=== PATIENT | female | born 1970 | race Caucasian/White ===

== ENCOUNTER 2017-03-24 15:59 | Emergency (ER) | payer OTHER ==
--- NOTE | 2017-03-24 16:05 | EDM.PDOC ---
ED HPI GENERAL MEDICAL PROBLEM - General Stated Complaint: CHEST PAIN Time Seen by Provider: 03/24/17 16:02 Source of Information: Reports: Patient History Limitations: Reports: No Limitations - History of Present Illness INITIAL COMMENTS - FREE TEXT/NARRATIVE: History of present illness: []Patient's been having intermittent palpitations for the past 3 weeks that are worse at night. She denies any chest pain, fevers, chills, cough or shortness of breath. Today she said that it was worse and she feels that it is just rapid pulse she does not recall it being irregular. She denies taking any new medications. She's never had her thyroid checked. Review of systems: As per history of present illness and below otherwise all systems reviewed and negative. Past medical history: As per history of present illness and as reviewed below otherwise noncontributory. Surgical history: As per history of present illness and as reviewed below otherwise noncontributory. Social history: No reported history of drug or alcohol abuse. Family history: As per history of present illness and as reviewed below otherwise noncontributory. Physical exam: General: Well developed, well nourished in NAD HEENT: Atraumatic, normocephalic, pupils reactive, negative for conjunctival pallor or scleral icterus, mucous membranes moist, throat clear, neck supple, nontender, trachea midline. Lungs: Clear to auscultation, breath sounds equal bilaterally, chest nontender. Heart: S1S2, regular, negative for clicks, rubs, or JVD. Abdomen: Soft, nondistended, nontender. Negative for masses or hepatosplenomegaly. Negative for costovertebral tenderness. Pelvis: Stable nontender. Genitourinary: Deferred. Rectal: Deferred. Extremities: Atraumatic, negative for cords or calf pain. Neurovascular unremarkable. Neuro: Awake, alert, oriented. Cranial nerves II through XII unremarkable. Cerebellum unremarkable. Motor and sensory unremarkable throughout. Exam nonfocal. Diagnostics: []EKG shows normal sinus rhythm without ectopy on the labs are normal including thyroid, troponin Therapeutics: []Patient was hydrated with fluid she remained symptom-free while in the ED. Impression: []Palpitations Plan: []Follow-up with PMD for Holter monitoring return if symptoms worsen or change. Definitive disposition and diagnosis as appropriate pending reevaluation and review of above. CHEST Pain Score (Numeric/FACES): 3 - Related Data Allergies Allergy/AdvReac Type Severity Reaction Status Date / Time Sulfa (Sulfonamide Allergy Rash Verified 03/24/17 16:07 Antibiotics) Home Meds: Home Meds Amitriptyline [Elavil] 25 mg PO BEDTIME 03/24/17 [History] Gabapentin [Gralise] 600 mg PO TID 03/24/17 [History] Insulin Glarg,Human.Rec.Analog [LantUS] 30 unit SUBCUT DAILY 03/24/17 [History] Losartan [Cozaar] 50 mg PO DAILY 03/24/17 [History] Omeprazole Magnesium [Prilosec Otc] 20 mg PO BID 03/24/17 [History] Pioglitazone HCl [Actos] 30 mg PO DAILY 03/24/17 [History] Tolterodine [Detrol LA 24 Hr] 2 mg PO DAILY 03/24/17 [History] Varenicline Tartrate [Chantix] 1 mg PO BID 03/24/17 [History] atorvaSTATin [Lipitor] 20 mg PO BEDTIME 03/24/17 [History] traMADol [Ultram] 50 mg PO Q4H PRN 03/24/17 [History] ED ROS GENERAL - Review of Systems Review Of Systems: See Below (See history of present illness) ED EXAM, GENERAL - Physical Exam Exam: See Below (See history of present illness) Course - Vital Signs Last Recorded V/S: Last Vital Signs Temp 36.8 C 03/24/17 16:08 Pulse 101 H 03/24/17 16:08 Resp 20 03/24/17 16:08 BP 146/94 H 03/24/17 16:08 Pulse Ox 99 03/24/17 16:08 - Orders/Labs/Meds Orders: Active Orders 24 hr Category Date Time Status Cardiac Monitoring [RC] . DIRECTED Care 03/24/17 16:16 Active EKG Documentation Completion [RC] STAT Care 03/24/17 16:16 Active Chest 1V Frontal [CR] Stat Exams 03/24/17 16:17 Taken Saline Lock Insert [OM.PC] Stat Oth 03/24/17 16:16 Ordered Labs: Laboratory Tests 03/24/17 03/24/17 03/24/17 Range/Units 16:15 16:15 16:15 WBC 10.40 (4.0-11.0) K/uL RBC 5.24 (4.30-5.90) M/uL Hgb 16.5 H (12.0-16.0) g/dL Hct 48.0 H (36.0-46.0) % MCV 91.6 (80.0-98.0) fL MCH 31.5 (27.0-32.0) pg MCHC 34.4 (31.0-37.0) g/dL RDW Std Deviation 42.4 (28.0-62.0) fl RDW Coeff of Darlin 13 (11.0-15.0) % Plt Count 307 (150-400) K/uL MPV 10.00 (7.40-12.00) fL Neut % (Auto) 53.1 (48.0-80.0) % Lymph % (Auto) 38.0 (16.0-40.0) % [place] % (Auto) 5.9 (0.0-15.0) % Eos % (Auto) 2.7 (0.0-7.0) % Baso % (Auto) 0.3 (0.0-1.5) % Neut # (Auto) 5.5 (1.4-5.7) K/uL Lymph # (Auto) 4.0 H (0.6-2.4) K/uL [place] # (Auto) 0.6 (0.0-0.8) K/uL Eos # (Auto) 0.3 (0.0-0.7) K/uL Baso # (Auto) 0.0 (0.0-0.1) K/uL Nucleated RBC % 0.0 /100WBC Nucleated RBCs # 0 K/uL Sodium 139 (136-146) mmol/L Potassium 3.9 (3.5-5.1) mmol/L Chloride 108 (98-110) mmol/L Carbon Dioxide 20 L (21-31) mmol/L BUN 13 (6.0-23.0) mg/dL Creatinine 0.9 (0.6-1.5) mg/dL Est Cr Clr Drug Dosing TNP Estimated GFR (MDRD) > 60.0 ml/min Glucose 60 (60-110) mg/dL Calcium 9.4 (8.8-10.8) mg/dL Total Bilirubin 0.4 (0.1-1.5) mg/dL AST 22 (5-40) IU/L ALT 21 (8-54) IU/L Alkaline Phosphatase 96 (40-150) Troponin I < 0.10 (0.0-0.29) NG/ML Total Protein 8.1 H (6.0-8.0) g/dL Albumin 4.7 (3.5-5.0) g/dL Globulin 3.4 (2.0-3.5) g/dL Albumin/Globulin Ratio 1.4 (1.3-2.8) TSH 3rd Generation 3.17 (0.47-5.0) uIU/mL Meds: Medications Discontinued Medications Generic Name Dose Route Start Last Admin Trade Name Wesley PRN Reason Stop Dose Admin Sodium Chloride 1,000 mls @ 999 mls/hr 03/24/17 16:16 03/24/17 16:31 Normal Saline IV 03/24/17 17:16 999 mls/hr .Bolus ONE Administration Departure - Departure Time of Disposition: 17:39 Disposition: Home, Self-Care 01 Condition: good Clinical Impression: Palpitations Additional Instructions: The following information is given to patients seen in the emergency department who are being discharged to home. This information is to outline your options for follow-up care. We provide all patients seen in our emergency department with a follow-up referral. The need for follow-up, as well as the timing and circumstances, are variable depending upon the specifics of your emergency department visit. If you don't have a primary care physician on staff, we will provide you with a referral. We always advise you to contact your personal physician following an emergency department visit to inform them of the circumstance of the visit and for follow-up with them and/or the need for any referrals to a consulting specialist. The emergency department will also refer you to a specialist when appropriate. This referral assures that you have the opportunity for follow-up care with a specialist. All of these measure are taken in an effort to provide you with optimal care, which includes your follow-up. Under all circumstances we always encourage you to contact your private physician who remains a resource for coordinating your care. When calling for follow-up care, please make the office aware that this follow-up is from your recent emergency room visit. If for any reason you are refused follow-up, please contact the [facility] Emergency Department at and asked to speak to the emergency department charge nurse. Follow-up with PMD for Holter monitoring and further workup, [facility] [address] [place] [id number] or call cardiology for follow-up: [facility] Dr. [place]lejo. [place] [address] [place] [id number] [phone] - My Orders Last 24 Hours: My Active Orders 03/24/17 16:16 Cardiac Monitoring [RC] . DIRECTED EKG Documentation Completion [RC] STAT Saline Lock Insert [OM.PC] Stat 03/24/17 16:17 Chest 1V Frontal [CR] Stat - Assessment/Plan Last 24 Hours: My Active Orders 03/24/17 16:16 Cardiac Monitoring [RC] . DIRECTED EKG Documentation Completion [RC] STAT Saline Lock Insert [OM.PC] Stat 03/24/17 16:17 Chest 1V Frontal [CR] Stat
[2017-03-24] MEDS ORDERED: Sodium Chloride 0.9% 1,000 ML IV ONE ×2 (16:16→17:24)
[2017-03-24 16:58] LABS: CHLORIDE,CL 108 mmol/L (98-110); SODIUM,NA 139 mmol/L (136-146)
[2017-03-24] MEDS ORDERED: diphenhydrAMINE 50 MG/ML SDV IVPUSH ONE (17:24)
[2017-03-24 18:07] VITALS: BP 128/72
--- NOTE | 2017-03-25 11:08 | CR ---
EXAM DATE: 03/24/17 PATIENT'S AGE: 46 Patient: ELISHA ROJAS Facility: [place], [place] Site . Site : [id number] Study: XRay Chest [id number]/12/2017 5:02:22 PM Ordering Physician: Yosvany Contreras Final Report: INDICATION: PAIN/SOB CHEST, ONE VIEW An AP radiograph of the chest was performed. Comparison: No previous studies are currently available for comparison. The lungs appear clear and no pleural effusions are identified. The cardiomediastinal silhouette and pulmonary vasculature appear normal, as do the visualized bones. IMPRESSION: No acute intrathoracic abnormality identified. CLAUDINE CAMEJO MD [employer] Dictated by: Kelton Camejo MD @ 03/24/2017 17:27:05 (Electronic Signature) Report Signed by Proxy. [facility] HOSPITALJuvenal
== END 2017-03-24 17:55 | disposition home or self-care (01) ==
LOC: MW.ED 15:59
DX: R00.2 Palpitations (principal); Z79.899 Other long term (current) drug therapy; Z88.2 Allergy status to sulfonamides; Z79.4 Long term (current) use of insulin
CPT/HCPCS: 71010; 80053; 84443; 84484; 85025; 93005; 96360; 99285; J7040; 99283

== ENCOUNTER 2017-06-03 10:02 | Emergency (ER) | payer OTHER ==
[2017-06-03] MEDS ORDERED: cefTRIAXone 1,000 MG in Lidocaine 1% 4 ML IM ONE (10:28)
--- NOTE | 2017-06-03 10:42 | EDM.PDOC ---
ED HPI GENERAL MEDICAL PROBLEM - General Chief Complaint: Skin Complaint Stated Complaint: PT SPOKE WITH NURSE Time Seen by Provider: 06/03/17 10:15 Source of Information: Reports: Patient History Limitations: Reports: No Limitations - History of Present Illness INITIAL COMMENTS - FREE TEXT/NARRATIVE: HISTORY AND PHYSICAL: 47-year-old female presents to the emergency room with facial cellulitis History of Present Illness: 47-year-old female presents to the emergency room with complaints of a tick bite to her right upper forehead in the hairline, which occurred April 15, 2017. She reports that since that time she's had increased swelling, redness, irritation, and drainage from the site. [facility] to [facility] yesterday and was started on the Clindamycin. Reports she's had 2 oral doses of this medication since that time and was instructed to follow-up in the emergency room today. This morning patient woke up and felt a "pop" and had a large amount of drainage coming from the site. Upon assessing the tick bite site the area appears red with dried yellow exudate approximately the size of a dime. Patient is concerned that she needs to be admitted for IV antibiotics, she had an episode of facial cellulitis 5 years ago which required hospitalization. Patient denies any abdominal pain, nausea, vomiting, diarrhea or headache. Labs from show a white count of 13.8 with a left shift. Review of Systems: As per history of present illness and below otherwise all systems reviewed and negative. Past medical history: As per history of present illness and as reviewed below otherwise noncontributory. Surgical history: As per history of present illness and as reviewed below otherwise noncontributory. Social history: No reported history of drug or alcohol abuse. Family history: As per history of present illness and as reviewed below otherwise noncontributory. Physical exam: Gen.: Nontoxic-appearing 47-year-old female. Able to speak in full sentences without shortness of breath. Answers questions appropriately. Alert and oriented HEENT: Atraumatic, normocehpalic, pupils reactive, negative for conjunctival pallor or scleral icterus, mucous membranes moist, throat clear, neck supple, nontender, trachea midline. Lungs: Clear to auscultation, breath sounds equal bilaterally, chest non tender. Heart: S1S2, regular, negative for clicks, rubs, or JVD. Abdomen: Soft, nondistended, nontender. Negative for masses or hepatossplenmegaly. Negative for costovertebral tenderness. Pelvis: Stable nontender. Genitourinary: Deferred. Rectal: Deferred Extremities: Atraumatic, moves all per self. negative for cords or calf pain. Neurovascular unremarkable. Skin: The tick bite site, which is located to the right upper hairline area appears erythematous with dried yellow exudate approximately the size of a dime. Nonfluctuant. Neuro: Awake, alert, oriented. Cranial nerves II through XII unremarkable. Cerebellum unremarkable. Motor and sensory unremarkable throughout. Exam nonfocal. Patient is to follow-up with Dr. Lucio in the residency clinic on . He has been evaluating the patient at this time as he will continue her care at her appointment. Diagnostics: [None- labs were sent from [facility]] Therapeutics: [Rocephin 1 g IM] Impression: [Facial cellulitis] Plan: 1. She received 1 g of Rocephin IM today. Please continue with your oral antibiotics, Clindamycin, as prescribed by [facility]. 2. Patient is to follow-up with Dr. Lucio in the residency clinic on . 3. If symptoms persist or worsen please return to the emergency room as needed as discussed. Definitive disposition and diagnosis as appropriate pending reevaluation and review of above. Onset: Other (April 15, 2017) Location: Reports: Head, Face Right Hairline Pain Score (Numeric/FACES): 8 - Related Data Allergies Allergy/AdvReac Type Severity Reaction Status Date / Time Sulfa (Sulfonamide Allergy Rash Verified 06/03/17 19:56 Antibiotics) Home Meds: Home Meds Gabapentin [Gralise] 600 mg PO TID 03/24/17 [History] Clindamycin HCl 300 mg PO BID 06/03/17 [History] Diclofenac Sodium [Voltaren] 75 mg PO BID 06/03/17 [History] Insulin Glarg,Human.Rec.Analog [LantUS] 22 unit SQ BID 06/03/17 [History] Past Medical History - Past Health History Medical/Surgical History: Denies Medical/Surgical History Cardiovascular History: Reports: Hypertension 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: Neurological History: Reports: Neuropathy, Peripheral Endocrine/Metabolic History: Reports: Diabetes, Type II - Past Surgical History GI Surgical History: Reports: Cholecystectomy Female Surgical History: Reports: Hysterectomy, Tubal Ligation Social & Family History - Family History Family Medical History: Noncontributory - Tobacco Use Smoking Status *Q: Current Every Day Smoker Years of Tobacco use: 27 Packs/Tins Daily: 1 - Caffeine Use Caffeine Use: Reports: Soda - Recreational Drug Use Recreational Drug Use: No ED ROS GENERAL - Review of Systems Review Of Systems: See Below ED EXAM, SKIN/RASH Exam: See Below (See dictation) Course - Vital Signs Last Recorded V/S: Last Vital Signs Temp 36.9 C 06/03/17 11:26 Pulse 82 06/03/17 11:26 Resp 18 06/03/17 11:26 BP 136/87 06/03/17 11:26 Pulse Ox 97 06/03/17 11:26 - Orders/Labs/Meds Meds: Medications Discontinued Medications Generic Name Dose Route Start Last Admin Trade Name Freq PRN Reason Stop Dose Admin Ceftriaxone Sodium 1,000 mg/ 4 mls @ 4 mls/sec 06/03/17 10:28 06/03/17 10:56 Lidocaine HCl IM 06/03/17 10:29 4 mls/sec ONETIME ONE Administration Departure - Departure Time of Disposition: 10:43 Disposition: Home, Self-Care 01 Condition: Good Clinical Impression: Facial cellulitis - Discharge Information Instructions: Cellulitis, Adult Referrals: Ivette Martines CARDIOLOGY CLINICAL NURSE SPECIALIST [Primary Care Provider] - Forms: ED Department Discharge Additional Instructions: The following information is given to patients seen in the emergency department who are being discharged to home. This information is to outline your options for follow-up care. We provide all patients seen in our emergency department with a follow-up referral. The need for follow-up, as well as the timing and circumstances, are variable depending upon the specifics of your emergency department visit. If you don't have a primary care physician on staff, we will provide you with a referral. We always advise you to contact your personal physician following an emergency department visit to inform them of the circumstance of the visit and for follow-up with them and/or the need for any referrals to a consulting specialist. The emergency department will also refer you to a specialist when appropriate. This referral assures that you have the opportunity for followup care with a specialist. All of these measure are taken in an effort to provide you with optimal care, which includes your followup. Under all circumstances we always encourage you to contact your private physician who remains a resource for coordinating your care. When calling for followup care, please make the office aware that this follow-up is from your recent emergency room visit. If for any reason you are refused follow-up, please contact the [facility] emergency department at and asked to speak to the emergency department charge nurse. [facility] [address] [place] [id number] 1. She received 1 g of Rocephin IM today. Please continue with your oral antibiotics, Clindamycin, as prescribed by [facility] clinic. 2. Patient is to follow-up with Dr. Lucio in the residency clinic on . 3. If symptoms persist or worsen please return to the emergency room as needed as discussed.
[2017-06-03 11:26] VITALS: BP 136/87
== END 2017-06-03 11:26 | disposition home or self-care (01) ==
LOC: MW.ED 10:02
DX: L03.211 Cellulitis of face (principal); I10 Essential (primary) hypertension; E11.9 Type 2 diabetes mellitus without complications; G62.9 Polyneuropathy, unspecified; F17.210 Nicotine dependence, cigarettes, uncomplicated; Z79.4 Long term (current) use of insulin; Z79.899 Other long term (current) drug therapy; Z88.2 Allergy status to sulfonamides; Z90.49 Acquired absence of other specified parts of digestive tract; Z98.51 Tubal ligation status; Z90.710 Acquired absence of both cervix and uterus; W57.XXXA Bitten or stung by nonvenomous insect and other nonvenomous arthropods, initial encounter
CPT/HCPCS: 96372; 99283; J0696

== ENCOUNTER 2017-06-03 19:51 | Emergency (ER) | payer OTHER ==
[2017-06-03] MEDS ORDERED: Sodium Chloride 0.9% 2.5 ML Syringe FLUSH PRN (20:09)
[2017-06-03] MEDS ORDERED: Ondansetron 4 MG/2 ML SDV IVPUSH ONE (20:09)
[2017-06-03] MEDS ORDERED: Sodium Chloride 0.9% 1,000 ML IV ONE (20:09)
[2017-06-03] MEDS ORDERED: Sodium Chloride 0.9% 10 ML Syringe FLUSH PRN (20:09)
[2017-06-03] MEDS ORDERED: Lidocaine 1% 20 ML MDV INJECT ONE (20:10)
--- NOTE | 2017-06-03 20:11 | EDM.PDOC ---
ED HPI GENERAL MEDICAL PROBLEM - General Chief Complaint: Skin Complaint Stated Complaint: NAUSEA/VOMITING Time Seen by Provider: 06/03/17 20:08 Source of Information: Reports: Patient History Limitations: Reports: No Limitations - History of Present Illness INITIAL COMMENTS - FREE TEXT/NARRATIVE: HISTORY AND PHYSICAL: [] Patient returns from home. Increased pain vomiting History of Present Illness: []Patient was seen earlier in the emergency department and treated with IV Rocephin and cephalexin for the cellulitis Review of Systems: As per history of present illness and below otherwise all systems reviewed and negative. Past medical history: As per history of present illness and as reviewed below otherwise noncontributory. Surgical history: As per history of present illness and as reviewed below otherwise noncontributory. Social history: No reported history of drug or alcohol abuse. Family history: As per history of present illness and as reviewed below otherwise noncontributory. Physical exam: Nontoxic female that is in mild distress, answering questions appropriately can speak in full sentences no shortness of breath, she's been crying and having vomiting. She took one of her hydrocodone to that she was issued. HEENT: Atraumatic, normocehpalic, pupils reactive, negative for conjunctival pallor or scleral icterus, mucous membranes moist, throat clear, neck supple, nontender, trachea midline. Cellulitis present to the scalp pustular material is expressed per . I&D performed to break up today loculated and irrigate this area. 2 inches of quarter-inch packing was inserted. Lungs: Clear to auscultation, breath sounds equal bilaterally, chest non tender. Heart: S1S2, regular, negative for clicks, rubs, or JVD. Abdomen: Soft, nondistended, nontender. Negative for masses or hepatossplenmegaly. Negative for costovertebral tenderness. Pelvis: Stable nontender. Genitourinary: Deferred. Rectal: Deferred Extremities: Atraumatic, negative for cords or calf pain. Neurovascular unremarkable. Neuro: Awake, alert, oriented. Cranial nerves II through XII unremarkable. Cerebellum unremarkable. Motor and sensory unremarkable throughout. Exam nonfocal. Diagnostics: [Wound culture] Therapeutics: [IV fluid Zofran] Impression: [Abscess] Plan: [] Discharge to home Add clindamycin to her antibiotic regimen Keep your appointment with Dr. Lucio as previously scheduled Zofran for nausea Definitive disposition and diagnosis as appropriate pending reevaluation and review of above. Onset: Today, Sudden Duration: Day(s):, Getting Worse Location: Reports: Head, Face face and head Pain Score (Numeric/FACES): 7 - Related Data Allergies Allergy/AdvReac Type Severity Reaction Status Date / Time Sulfa (Sulfonamide Allergy Rash Verified 06/03/17 19:56 Antibiotics) Home Meds: Home Meds Gabapentin [Gralise] 600 mg PO TID 03/24/17 [History] Clindamycin HCl 300 mg PO BID 06/03/17 [History] Clindamycin HCl [Cleocin HCl] 300 mg PO Q4HR #28 capsule 06/03/17 [Rx] Diclofenac Sodium [Voltaren] 75 mg PO BID 06/03/17 [History] Insulin Glarg,Human.Rec.Analog [LantUS] 22 unit SQ BID 06/03/17 [History] Ondansetron [Zofran ODT] 4 mg PO Q8H #12 tab.dis 06/03/17 [Rx] Past Medical History - Past Health History Medical/Surgical History: Denies Medical/Surgical History Cardiovascular History: Reports: Hypertension 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: Neurological History: Reports: Neuropathy, Peripheral Psychiatric History: Reports: None Endocrine/Metabolic History: Reports: Diabetes, Type II - Infectious Disease History Infectious Disease History: Reports: None - Past Surgical History GI Surgical History: Reports: Cholecystectomy Female Surgical History: Reports: Hysterectomy, Tubal Ligation Social & Family History - Family History Family Medical History: Noncontributory - Tobacco Use Smoking Status *Q: Current Every Day Smoker Years of Tobacco use: 27 Packs/Tins Daily: 0.5 - Caffeine Use Caffeine Use: Reports: Soda - Recreational Drug Use Recreational Drug Use: No ED ROS GENERAL - Review of Systems Review Of Systems: ROS reveals no pertinent complaints other than HPI. ED EXAM, SKIN/RASH Exam: See Below ED SKIN PROCEDURES - I&D Site: Scalp Skin Prep: Isopropyl Alcohol (Alcohol), Saline Local Anesthesia: Lidocaine: 1% Plain Local Anesthetic Volume: 3cc Area Incised With: 11 Blade Drainage: Purulent, Moderate Amount Probed to Break Up Loculations: Yes Packed With: Other (Quarter-inch gauze dressing) Sterile Dressinx4(s) Complications: No Course - Vital Signs Last Recorded V/S: Last Vital Signs Temp 36.5 C 06/03/17 19:57 Pulse 92 06/03/17 19:57 Resp 18 06/03/17 19:57 BP 176/81 H 06/03/17 19:57 Pulse Ox 98 06/03/17 19:57 - Orders/Labs/Meds Orders: Active Orders 24 hr Category Date Time Status COMPREHENSIVE METABOLIC PN,CMP [CHEM] Stat Lab 06/03/17 20:20 Received CULTURE WOUND [RM] Stat Lab 06/03/17 20:08 Received Sodium Chloride 0.9% [Normal Saline] 1,000 ml Med 06/03/17 20:09 Active IV STAT Sodium Chloride 0.9% [Saline Flush] Med 06/03/17 20:09 Active 10 ml FLUSH ASDIRECTED PRN Sodium Chloride 0.9% [Saline Flush] Med 06/03/17 20:09 Active 2.5 ml FLUSH ASDIRECTED PRN Saline Lock Insert [OM.PC] Stat Oth 06/03/17 20:09 Ordered Medication Orders Sodium Chloride (Normal Saline) 1,000 mls @ 999 mls/hr IV STAT ONE Stop: 06/03/17 21:09 Last Admin: 06/03/17 20:22 Dose: 999 mls/hr Sodium Chloride (Saline Flush) 10 ml FLUSH ASDIRECTED PRN PRN Reason: Keep Vein Open Last Admin: 06/03/17 20:22 Dose: 10 ml Sodium Chloride (Saline Flush) 2.5 ml FLUSH ASDIRECTED PRN PRN Reason: Keep Vein Open Last Admin: 06/03/17 20:22 Dose: 2.5 ml Labs: Laboratory Tests 06/03/17 Range/Units 20:20 WBC 12.47 H (4.0-11.0) K/uL RBC 4.70 (4.30-5.90) M/uL Hgb 15.0 (12.0-16.0) g/dL Hct 42.3 (36.0-46.0) % MCV 90.0 (80.0-98.0) fL MCH 31.9 (27.0-32.0) pg MCHC 35.5 (31.0-37.0) g/dL RDW Std Deviation 40.0 (28.0-62.0) fl RDW Coeff of Darlin 12 (11.0-15.0) % Plt Count 339 (150-400) K/uL MPV 10.50 (7.40-12.00) fL Neut % (Auto) 68.1 (48.0-80.0) % Lymph % (Auto) 23.3 (16.0-40.0) % [place] % (Auto) 6.5 (0.0-15.0) % Eos % (Auto) 1.9 (0.0-7.0) % Baso % (Auto) 0.2 (0.0-1.5) % Neut # (Auto) 8.5 H (1.4-5.7) K/uL Lymph # (Auto) 2.9 H (0.6-2.4) K/uL [place] # (Auto) 0.8 (0.0-0.8) K/uL Eos # (Auto) 0.2 (0.0-0.7) K/uL Baso # (Auto) 0.0 (0.0-0.1) K/uL Nucleated RBC % 0.0 /100WBC Nucleated RBCs # 0 K/uL Meds: Medications Generic Name Dose Route Start Last Admin Trade Name Freq PRN Reason Stop Dose Admin Sodium Chloride 1,000 mls @ 999 mls/hr 06/03/17 20:09 06/03/17 20:22 Normal Saline IV 06/03/17 21:09 999 mls/hr STAT ONE Administration Sodium Chloride 10 ml 06/03/17 20:09 06/03/17 20:22 Saline Flush FLUSH 10 ml ASDIRECTED PRN Administration Keep Vein Open Sodium Chloride 2.5 ml 06/03/17 20:09 06/03/17 20:22 Saline Flush FLUSH 2.5 ml ASDIRECTED PRN Administration Keep Vein Open Discontinued Medications Generic Name Dose Route Start Last Admin Trade Name Freq PRN Reason Stop Dose Admin Lidocaine HCl 20 ml 06/03/17 20:10 06/03/17 20:22 Xylocaine 1% INJECT 06/03/17 20:11 20 ml ONETIME ONE Administration Ondansetron HCl 8 mg 06/03/17 20:09 06/03/17 20:22 Zofran IVPUSH 06/03/17 20:10 8 mg ONETIME ONE Administration Departure - Departure Time of Disposition: 20:48 Disposition: Home, Self-Care 01 Condition: Good Clinical Impression: Abscess - Discharge Information Prescriptions: Clindamycin HCl [Cleocin HCl] 300 mg PO Q4HR #28 capsule Ondansetron [Zofran ODT] 4 mg PO Q8H #12 tab.dis Forms: ED Department Discharge Additional Instructions: The following information is given to patients seen in the emergency department who are being discharged to home. This information is to outline your options for follow-up care. We provide all patients seen in our emergency department with a follow-up referral. The need for follow-up, as well as the timing and circumstances, are variable depending upon the specifics of your emergency department visit. If you don't have a primary care physician on staff, we will provide you with a referral. We always advise you to contact your personal physician following an emergency department visit to inform them of the circumstance of the visit and for follow-up with them and/or the need for any referrals to a consulting specialist. The emergency department will also refer you to a specialist when appropriate. This referral assures that you have the opportunity for followup care with a specialist. All of these measure are taken in an effort to provide you with optimal care, which includes your followup. Under all circumstances we always encourage you to contact your private physician who remains a resource for coordinating your care. When calling for followup care, please make the office aware that this follow-up is from your recent emergency room visit. If for any reason you are refused follow-up, please contact the [facility] emergency department at and asked to speak to the emergency department charge nurse. Prescriptions have been electronically sent to your pharmacy Antibiotic of clindamycin continue to take your cephalexin that you have at home Zofran ODT 4 mg for nausea as directed Keep your appointment with Dr. Lucio as scheduled Any worsening of symptoms please return for further evaluation - My Orders Last 24 Hours: My Active Orders 06/03/17 20:09 Sodium Chloride 0.9% [Normal Saline] 1,000 ml IV STAT Sodium Chloride 0.9% [Saline Flush] 10 ml FLUSH ASDIRECTED PRN Sodium Chloride 0.9% [Saline Flush] 2.5 ml FLUSH ASDIRECTED PRN Saline Lock Insert [OM.PC] Stat 06/03/17 20:20 COMPREHENSIVE METABOLIC PN,CMP [CHEM] Stat - Assessment/Plan Last 24 Hours: My Active Orders 06/03/17 20:09 Sodium Chloride 0.9% [Normal Saline] 1,000 ml IV STAT Sodium Chloride 0.9% [Saline Flush] 10 ml FLUSH ASDIRECTED PRN Sodium Chloride 0.9% [Saline Flush] 2.5 ml FLUSH ASDIRECTED PRN Saline Lock Insert [OM.PC] Stat 06/03/17 20:20 COMPREHENSIVE METABOLIC PN,CMP [CHEM] Stat
[2017-06-03 20:53] LABS: CHLORIDE,CL 106 mmol/L (98-110); SODIUM,NA 138 mmol/L (136-146)
[2017-06-03] MEDS ORDERED: Ketorolac 30 MG/ML SDV IVPUSH ONE (21:06)
[2017-06-03 22:47] VITALS: BP 160/90
== END 2017-06-03 21:30 | disposition home or self-care (01) ==
LOC: MW.ED 19:51
DX: L02.01 Cutaneous abscess of face (principal); L03.811 Cellulitis of head [any part, except face]; I10 Essential (primary) hypertension; G62.9 Polyneuropathy, unspecified; E11.9 Type 2 diabetes mellitus without complications; F17.210 Nicotine dependence, cigarettes, uncomplicated; Z88.2 Allergy status to sulfonamides; Z90.49 Acquired absence of other specified parts of digestive tract; Z98.51 Tubal ligation status; Z90.710 Acquired absence of both cervix and uterus; Z79.4 Long term (current) use of insulin; Z79.899 Other long term (current) drug therapy; L03.211 Cellulitis of face; W57.XXXA Bitten or stung by nonvenomous insect and other nonvenomous arthropods, initial encounter; S00.86XA Insect bite (nonvenomous) of other part of head, initial encounter
CPT/HCPCS: 10060; 80053; 85025; 87070; 87077; 87186; 96361; 96372; 96374; 96375; 99283; 99284; J0696; J1885; J2405; J7040

== ENCOUNTER 2017-10-20 16:06 | Emergency (ER) | payer OTHER ==
[2017-10-20] MEDS ORDERED: Sodium Chloride 0.9% 1,000 ML IV ONE ×2 (16:25→16:48)
[2017-10-20] MEDS ORDERED: Ondansetron 4 MG/2 ML SDV IVPUSH ONE (16:25)
[2017-10-20] MEDS ORDERED: Morphine 4 MG/ML Syringe IVPUSH ONE ×2 (16:25→17:06)
--- NOTE | 2017-10-20 16:44 | EDM.PDOC ---
ED HPI GENERAL MEDICAL PROBLEM - General Chief Complaint: Lower Extremity Injury/Pain Stated Complaint: HIP PAIN Time Seen by Provider: 10/20/17 16:07 Source of Information: Reports: Patient History Limitations: Reports: No Limitations - History of Present Illness INITIAL COMMENTS - FREE TEXT/NARRATIVE: HISTORY AND PHYSICAL: History of present illness: Patient is a 47-year-old female who presents to the emergency room by ambulance with complaints of right hip pain for the last 2 hours. Was housework when she started experiencing pain 2 hours later it became so excruciating that she was unable to move. The called EMS. She denies any recent trauma or injury to the affected extremity. EMS states that upon arrival she was in severe pain after receiving fentanyl 100 mcgs and 5 mg of Valium IV. Pain starts to right low back and goes down the hip and into the leg. She denies any chest pain, SOB, abdominal pain, n/v/d. She denies any hormone therapy, recent long trips/traveling, excessive sitting/inactivity. Patient has a history of type 2 diabetes, uses insulin daily. Denies any previous history of blood clots or any cardiovascular/vascular problems. Review of systems: As per history of present illness and below otherwise all systems reviewed and negative. Past medical history: As per history of present illness and as reviewed below otherwise noncontributory. Surgical history: As per history of present illness and as reviewed below otherwise noncontributory. Social history: No reported history of drug or alcohol abuse. Family history: As per history of present illness and as reviewed below otherwise noncontributory. Physical exam: General: Nontoxic-appearing 47-year-old female. Alert and oriented. Appears in moderate discomfort. HEENT: Atraumatic, normocephalic, pupils reactive, negative for conjunctival pallor or scleral icterus, mucous membranes moist, throat clear, neck supple, nontender, TMs normal bilaterally, trachea midline. Lungs: Clear to auscultation, breath sounds equal bilaterally, chest nontender. Heart: S1S2, regular rate and rhythm Abdomen: Soft, obesenondistended, nontender. Negative for masses or hepatosplenomegaly. Negative for costovertebral tenderness. Pelvis: Stable nontender. Genitourinary: Deferred. Rectal: Deferred. Extremities: Atraumatic, moves all extremities per self. Does have increased pain to the right hip that radiates down to mid thigh. Right lower extremity cool to the touch and has a dusky blue hue to it. A Doppler was used and unable to get a pedal or popliteal pulse. Was able to auscultate a femoral pulse, 110 bpm. Has decreased sensation from mid-ayala down to toes on right foot. Neuro: Awake, alert, oriented. Cranial nerves II through XII unremarkable. Cerebellum unremarkable. Motor and sensory unremarkable throughout. Exam nonfocal. Upon arrival of the patient she is in extreme pain regardless of receiving the fentanyl and Valium. Assessing the patient's lower extremity I am unable to palpate a pedal pulse. Her clothing was removed and a Doppler was used, unable to auscultate a pulse to the pedal or popliteal areas of the right lower extremity. Femoral pulses faintly palpable and auscultated at 110 bpm. The extremity is cool to touch and does have a blue hue to it. She states that on and off she has noticed some numbness and tingling to that extremity, but never had pain associated with it. Dr. Bar has been involved in this case. Patient had a BUN/creatinine and creatinine done on 06/03/2018 with a BUN 14 and Creatinine 0.9. A CTA with runoff was ordered for the right lower extremity. Labs are pending. 1630 - Dr. Wilkerson was paged. I contacted [facility] in [place] and spoke with Dr. Leblanc and Dr. Georges. Both declined to take the patient. , vascular surgeon, states he is not on-call at this time. 1645- Spoke with Dr. Wilkerson, our general surgeon, about this patient. He requests to have this patient transferred. [facility] was contact. The interventional radiologist, Dr. Hewitt accepted this patient. He states that , ICU physician, agreed to keep her in the ICU for management. Dr. Rodriguez, ED physician, agrees to see the patient through the ED then to the interventional radiologist. Dr. Hewitt quest to have the patient be high-dose heparin and IV fluids. 1700- Nursing staff trying to arrange transfer due to weather and unavailability. She returned from CT, she is made aware of the transfer that is being arranged. The is at the bedside, I did discuss the significance of her addition and with her her - he is aware that with her comorbidity of diabetes that there is a possibility of her losing her lower extremity. She does voice understanding. Heparin is being infused at this time. 1720- Vital signs remained stable. [facility] is approx 40 minutes out from being able to get the patient. 1740- Vital signs remain stable. Labs have returned: WBC 19.95, Glucose 408, BUN 17, Creatitine 1.3 1800- Her pain is a 6/10 currently, states she is "more comfortable" than she was previously. She is requiring 2 L of oxygen as her oxygen did drop to 90% after receiving the pain medication and Ativan. Currently 95-97% on 2 L. 1808- Verbal radiology report from Dr. Kelton Patrick, [facility]. Tubular filling defect measuring 3-4 centimeters in length along the anterior wall of the infrarenal abdominal aorta consistent with nonocclusive thrombus or plaque. Occlusion of the mid and distal portions of the right external iliac artery and of the common femoral artery, with reconstitution of flow in the right SFA, profunda, and popliteal arteries. Nonopacification of the right trifurcation vessels is also noted. This information was shared with the one-call center in [place]. Images/Report was pushed to [place]. Flight crew is here. Diagnostics: CBC, CMP, INR/PTT, CTA of the right lower extremity with runoff Therapeutics: Heparin bolus and drip Morphine, IV fluid, Zofran, Ativan Impression: Arterial occlusion, right lower extremity Plan: Transfer via Flight to [facility] in [place] with Heparin Drip- Dr. Hewitt (IR ) and Jennifer (ED) have accepted this patient. Definitive disposition and diagnosis as appropriate pending reevaluation and review of above. Onset: Today Duration: Hour(s): (2 hours [employer]) Location: Reports: Lower Extremity, Right Quality: Reports: Sharp, Stabbing Severity: Severe Improves with: Reports: None Worsens with: Reports: None Associated Symptoms: Reports: No Other Symptoms. Denies: Confusion, Chest Pain , Cough, cough w sputum, Diaphoresis, Fever/Chills, Headaches, Loss of Appetite , Malaise, Nausea/Vomiting, Rash, Seizure, Shortness of Breath, Syncope, Weakness right hip Pain Score (Numeric/FACES): 7 - Related Data Allergies Allergy/AdvReac Type Severity Reaction Status Date / Time Sulfa (Sulfonamide Allergy Rash Verified 10/20/17 16:10 Antibiotics) Home Meds: Home Meds Insulin Glarg,Human.Rec.Analog [LantUS] 22 unit SQ BID 06/03/17 [History] Losartan [Cozaar] 50 mg PO DAILY 10/20/17 [History] Pioglitazone [Actos] 30 mg PO DAILY 10/20/17 [History] Past Medical History - Past Health History Medical/Surgical History: Denies Medical/Surgical History HEENT History: Reports: None Cardiovascular History: Reports: High Cholesterol, Hypertension Respiratory History: Reports: None Gastrointestinal History: Reports: None Genitourinary History: Reports: None FACING SLITTER History: Reports: Musculoskeletal History: Reports: None Neurological History: Reports: Neuropathy, Peripheral Psychiatric History: Reports: None Endocrine/Metabolic History: Reports: Diabetes, Type II Hematologic History: Reports: None Immunologic History: Reports: None Oncologic (Cancer) History: Reports: None Dermatologic History: Reports: None - Infectious Disease History Infectious Disease History: Reports: None - Past Surgical History Head Surgeries/Procedures: Reports: None HEENT Surgical History: Reports: None Cardiovascular Surgical History: Reports: None Respiratory Surgical History: Reports: None GI Surgical History: Reports: Cholecystectomy Female Surgical History: Reports: Hysterectomy, Tubal Ligation Endocrine Surgical History: Reports: None Neurological Surgical History: Reports: None Musculoskeletal Surgical History: Reports: None Oncologic Surgical History: Reports: None Dermatological Surgical History: Reports: None Social & Family History - Family History Family Medical History: Noncontributory - Tobacco Use Smoking Status *Q: Never Smoker Years of Tobacco use: 27 Packs/Tins Daily: 0.5 - Caffeine Use Caffeine Use: Reports: Coffee, Energy Drinks, Soda - Recreational Drug Use Recreational Drug Use: No Review of Systems - Review of Systems Review Of Systems: ROS reveals no pertinent complaints other than HPI. ED EXAM, GENERAL - Physical Exam Exam: See Below (See dictation) Course - Vital Signs Last Recorded V/S: Last Vital Signs Temp 96.9 F 10/20/17 16:14 Pulse 115 H 10/20/17 16:14 Resp 18 10/20/17 16:14 BP 139/80 10/20/17 16:14 Pulse Ox 98 10/20/17 16:14 - Orders/Labs/Meds Orders: Active Orders 24 hr Category Date Time Status Blood Glucose Check, Bedside [] ONETIME Care 10/20/17 16:11 Active Oxygen Therapy Adult [Oxygen Therapy, ED] [] Care 10/20/17 17:59 Active ASDIRECTED Ang Lower Extremity Rt [CT] Stat Exams 10/20/17 16:31 Taken Heparin Sod,Pork In 0.45% Nacl [Heparin-1/2Ns 25,000 Med 10/20/17 17:00 Active Units/500] 25,000 unit in 500 ml IV TITRATE Medication Orders Heparin Sod,Pork In 0.45% Nacl (Heparin-1/2ns 25,000 Units/500) 25,000 unit in 500 mls @ 166.922 mls/hr IV TITRATE CHAS; 80 UNITS/KG/HR PRN Reason: Protocol Last Admin: 10/20/17 17:14 Dose: 80 units/kg/hr, 166.922 mls/hr Labs: Laboratory Tests 10/20/17 10/20/17 10/20/17 Range/Units 16:19 16:19 16:19 WBC 19.95 H (4.0-11.0) K/uL RBC 5.14 (4.30-5.90) M/uL Hgb 16.4 H (12.0-16.0) g/dL Hct 44.7 (36.0-46.0) % MCV 87.0 (80.0-98.0) fL MCH 31.9 (27.0-32.0) pg MCHC 36.7 (31.0-37.0) g/dL RDW Std Deviation 38.6 (28.0-62.0) fl RDW Coeff of Darlin 12 (11.0-15.0) % Plt Count 295 (150-400) K/uL MPV 10.00 (7.40-12.00) fL Add Manual Diff YES Neutrophils % (Manual) 73 (48.0-80.0) % Band Neutrophils % 1 % Lymphocytes % (Manual) 19 (16.0-40.0) % Monocytes % (Manual) 7 (0.0-15.0) % Nucleated RBC % 0.0 /100WBC Absolute Seg Neuts 14.6 H (1.4-5.7) Band Neutrophils # 0.2 Lymphocytes # (Manual) 3.8 H (0.6-2.4) Monocytes # (Manual) 1.4 H (0.0-0.8) Nucleated RBCs # 0 K/uL INR (0.86-1.11) APTT 21.8 (18.6-31.3) SEC Sodium 132 L (136-146) mmol/L Potassium 3.5 (3.5-5.1) mmol/L Chloride 99 (98-110) mmol/L Carbon Dioxide 16 L (21-31) mmol/L BUN 17 (6.0-23.0) mg/dL Creatinine 1.3 (0.6-1.5) mg/dL Est Cr Clr Drug Dosing 52.02 mL/min Estimated GFR (MDRD) 43.9 ml/min Glucose 408 H (60-110) mg/dL POC Glucose (60-110) mg/dL Calcium 9.5 (8.8-10.8) mg/dL Total Bilirubin 0.7 (0.1-1.5) mg/dL AST 22 (5-40) IU/L ALT 31 (8-54) IU/L Alkaline Phosphatase 139 (40-150) Total Protein 7.5 (6.0-8.0) g/dL Albumin 4.3 (3.5-5.0) g/dL Globulin 3.2 (2.0-3.5) g/dL Albumin/Globulin Ratio 1.3 (1.3-2.8) 10/20/17 10/20/17 Range/Units 16:22 16:34 WBC (4.0-11.0) K/uL RBC (4.30-5.90) M/uL Hgb (12.0-16.0) g/dL Hct (36.0-46.0) % MCV (80.0-98.0) fL MCH (27.0-32.0) pg MCHC (31.0-37.0) g/dL RDW Std Deviation (28.0-62.0) fl RDW Coeff of Darlin (11.0-15.0) % Plt Count (150-400) K/uL MPV (7.40-12.00) fL Add Manual Diff Neutrophils % (Manual) (48.0-80.0) % Band Neutrophils % % Lymphocytes % (Manual) (16.0-40.0) % Monocytes % (Manual) (0.0-15.0) % Nucleated RBC % /100WBC Absolute Seg Neuts (1.4-5.7) Band Neutrophils # Lymphocytes # (Manual) (0.6-2.4) Monocytes # (Manual) (0.0-0.8) Nucleated RBCs # K/uL INR 1.02 (0.86-1.11) APTT (18.6-31.3) SEC Sodium (136-146) mmol/L Potassium (3.5-5.1) mmol/L Chloride (98-110) mmol/L Carbon Dioxide (21-31) mmol/L BUN (6.0-23.0) mg/dL Creatinine (0.6-1.5) mg/dL Est Cr Clr Drug Dosing mL/min Estimated GFR (MDRD) ml/min Glucose (60-110) mg/dL POC Glucose 335 H (60-110) mg/dL Calcium (8.8-10.8) mg/dL Total Bilirubin (0.1-1.5) mg/dL AST (5-40) IU/L ALT (8-54) IU/L Alkaline Phosphatase (40-150) Total Protein (6.0-8.0) g/dL Albumin (3.5-5.0) g/dL Globulin (2.0-3.5) g/dL Albumin/Globulin Ratio (1.3-2.8) Meds: Medications Generic Name Dose Route Start Last Admin Trade Name Freq PRN Reason Stop Dose Admin Heparin Sod,Pork In 0.45% Nacl 25,000 unit in 500 mls @ 166.922 mls/hr 17:00 10/20/17 17:14 Heparin-1/2ns 25,000 Units/500 IV 80 units/kg/hr TITRATE CHAS 166.922 mls/hr Protocol Administration 80 UNITS/KG/HR Discontinued Medications Generic Name Dose Route Start Last Admin Trade Name Freq PRN Reason Stop Dose Admin Heparin Sodium (Porcine) 0 units 10/20/17 16:48 10/20/17 17:10 Heparin Sodium IVPUSH 10/20/17 16:49 7,500 units ONETIME ONE Administration Protocol Hydromorphone HCl 1 mg 10/20/17 17:20 01/08/18 17:25 Dilaudid IVPUSH 10/20/17 17:21 1 mg ONETIME ONE Administration Hydromorphone HCl Confirm 10/20/17 17:23 10/20/17 18:10 Dilaudid Administered 10/20/17 17:24 Not Given Dose 2 mg .ROUTE .STK-MED ONE Sodium Chloride 1,000 mls @ 999 mls/hr 10/20/17 16:25 10/20/17 16:45 Normal Saline IV 10/20/17 17:25 999 mls/hr STAT ONE Administration Sodium Chloride 1,000 mls @ 999 mls/hr 10/20/17 16:48 10/20/17 18:07 Normal Saline IV 10/20/17 17:48 999 mls/hr .Bolus ONE Administration Iopamidol 140 ml 10/20/17 17:25 10/20/17 17:26 Isovue Multipack-370 (76%) IVPUSH 10/20/17 17:26 140 ml ONETIME STA Administration Lorazepam 1 mg 10/20/17 17:19 10/20/17 17:24 Ativan IVPUSH 10/20/17 17:20 1 mg ONETIME ONE Administration Lorazepam Confirm 10/20/17 17:24 10/20/17 18:10 Ativan Administered 10/20/17 17:25 Not Given Dose 2 mg .ROUTE .STK-MED ONE Morphine Sulfate 4 mg 10/20/17 16:25 10/20/17 16:39 Morphine IVPUSH 10/20/17 16:26 4 mg ONETIME ONE Administration Morphine Sulfate 4 mg 10/20/17 17:06 10/20/17 17:13 Morphine IVPUSH 10/20/17 17:07 4 mg ONETIME ONE Administration Ondansetron HCl 4 mg 10/20/17 16:25 10/20/17 16:39 Zofran IVPUSH 10/20/17 16:26 4 mg ONETIME ONE Administration Departure - Departure Time of Disposition: 18:26 Disposition: DC/Tfer to Other 70 Clinical Impression: Arterial occlusion - Discharge Information Referrals: PCP,None [Primary Care Provider] - Forms: ED Department Discharge - My Orders Last 24 Hours: My Active Orders 10/20/17 16:11 Blood Glucose Check, Bedside [RC] ONETIME 10/20/17 17:00 Heparin Sod,Pork In 0.45% Nacl [Heparin-1/2Ns 25,000 Units/500] 25,000 unit in 500 ml IV TITRATE 10/20/17 17:59 Oxygen Therapy Adult [Oxygen Therapy, ED] [RC] ASDIRECTED - Assessment/Plan Last 24 Hours: My Active Orders 10/20/17 16:11 Blood Glucose Check, Bedside [RC] ONETIME 10/20/17 17:00 Heparin Sod,Pork In 0.45% Nacl [Heparin-1/2Ns 25,000 Units/500] 25,000 unit in 500 ml IV TITRATE 10/20/17 17:59 Oxygen Therapy Adult [Oxygen Therapy, ED] [RC] ASDIRECTED
[2017-10-20] MEDS ORDERED: Heparin Sodium 5,000 Units/ML Vial IVPUSH ONE (16:48)
[2017-10-20] MEDS ORDERED: Heparin Sod,Pork In 0.45% Nacl 25,000 UNIT/500 ML IV.SOLN IV SCH (17:00)
[2017-10-20] MEDS ORDERED: LORazepam 2 MG/ML MDV IVPUSH ONE (17:19)
[2017-10-20] MEDS ORDERED: HYDROmorphone 1 MG/ML Syringe IVPUSH ONE (17:20)
[2017-10-20] MEDS ORDERED: HYDROmorphone 2 MG/ML Syringe ONE (17:23)
[2017-10-20] MEDS ORDERED: LORazepam 2 MG/ML MDV ONE (17:24)
[2017-10-20] MEDS ORDERED: Iopamidol 755 MG/ML 500 ML Multipack Bottle IVPUSH STA (17:25)
[2017-10-20 19:17] VITALS: BP 135/96
--- NOTE | 2017-10-23 10:31 | CT ---
EXAM DATE: 10/20/17 PATIENT'S AGE: 47 Patient: ELISHA ROJAS Facility: [facility] Site . Site : [id number] Study: CT-Extremity Angio [id number]/[id number] 5:20:45 PM Ordering Physician: Doctor Cage Final Report: CT ANGIOGRAM RIGHT LOWER EXTREMITY, 10/20/2017 CLINICAL HISTORY: 47-year-old female with cold, pale pulseless right foot. COMPARISON: None. TECHNIQUE: Following the administration of intravenous contrast, contiguous axial images were obtained through the abdomen, pelvis and bilateral lower extremities. Provided images are centered on the right half of the body including a right leg. 140 cc of iodinated contrast was administered. FINDINGS: The provided images are cone-down on the right iliac system and the right lower extremity. ABDOMEN: The lung bases are clear. The visualized liver appears normal. The visualized pancreas appears normal. The adrenal glands appear normal. The visualized left kidney appears normal. The right kidney appears normal. No free fluid identified. No bony lytic or blastic lesions. PELVIS: The urinary bladder is unremarkable in a minimally distended state. The uterus is surgically absent. No free fluid. Some small calcified pelvic phleboliths. No lymphadenopathy. No acute bony lytic or blastic lesions. RIGHT LOWER EXTREMITY: No soft tissue abnormalities. No acute bony lytic or blastic lesions. VASCULATURE: The abdominal aorta is nonaneurysmal, demonstrating a normal course , caliber and contour. The celiac and superior mesenteric artery origins are patent. The main right renal artery is patent as is the accessory artery. The main left renal artery is patent. There is some calcified atherosclerotic plaque in the infrarenal abdominal aorta just above the level of the inferior mesenteric artery associated with thrombus causing approximately 70% narrowing. It is nearly occlusive below the level of the PATI, as well. There does appear to be flow in the inferior mesenteric artery. The visualized left common iliac artery is patent. The right common iliac and internal iliac arteries are patent. The right external iliac artery is thrombosed extending in through the right common femoral artery and into the origin of the deep femoral artery. RIGHT LOWER EXTREMITY: The right common femoral artery is occluded as are the origins of the superficial femoral and deep femoral arteries. There is reconstitution of both these vessels. The remainder of the superficial femoral artery and popliteal arteries are patent. The distal popliteal artery and the runoff vessels are not well opacified, likely due to timing of image acquisition. IMPRESSION: 1) Right external iliac artery occlusion extending through the right common femoral artery and into the origins of the superficial femoral and deep femoral arteries. Runoff vessels are not opacified, so thrombus below the knee cannot be excluded, although this is likely related to image acquisition relative to the timing of the contrast administration. 2) Nearly occlusive thrombus within the infrarenal abdominal aorta at the level of the inferior mesenteric artery. Please note that all CT scans at this facility use dose modulation, iterative reconstruction, and/or weight-based dosing when appropriate to reduce radiation dose to as low as reasonably achievable. Dictated by Farshad Bhakta MD @ Oct 22 2017 4:58PM Signed by: Farshad Bhakta MD @10/22/2017 5:03:44 PM (Electronic Signature) Report Signed by Proxy. MTDD
== END 2017-10-20 18:45 | disposition other institution (70) ==
LOC: MW.ED 16:06
DX: I74.5 Embolism and thrombosis of iliac artery (principal); I74.3 Embolism and thrombosis of arteries of the lower extremities; E11.9 Type 2 diabetes mellitus without complications; E78.00 Pure hypercholesterolemia, unspecified; I10 Essential (primary) hypertension; Z79.899 Other long term (current) drug therapy; Z88.2 Allergy status to sulfonamides
CPT/HCPCS: 36415; 73706; 80053; 82962; 85025; 85610; 85730; 96365; 96375; 96376; 99285; J1170; J1644; J2060; J2270; J2405; J7040; Q9967

== ENCOUNTER 2017-10-29 12:37 | Emergency (ER) | payer OTHER ==
[2017-10-29 12:48] VITALS: BP 132/62
--- NOTE | 2017-10-29 13:32 | EDM.PDOC ---
ED HPI GENERAL MEDICAL PROBLEM - General Chief Complaint: Lower Extremity Injury/Pain Stated Complaint: PT WOULD LIKE TO BE SEEN Time Seen by Provider: 10/29/17 13:31 Source of Information: Reports: Patient - History of Present Illness INITIAL COMMENTS - FREE TEXT/NARRATIVE: HISTORY AND PHYSICAL: History of present illness: [Patient recently had a clot extracted from her left lower extremity procedures done the last few days, she now complains of leg swelling since her return home Surgical incisions scar left groin is clean dry intact leg is swollen on left compared to right she does have calf tenderness, ultrasound performed exhibits no DVT and good blood flow, she has not been elevating her leg at rest and has been trying to walk on this these are against her physician's recommendations Otherwise no fever nausea vomiting chills sweats no chest pain shortness breath headache dizziness palpitation no bowel or urine symptoms ] Review of systems: As per history of present illness and below otherwise all systems reviewed and negative. Past medical history: As per history of present illness and as reviewed below otherwise noncontributory. Surgical history: As per history of present illness and as reviewed below otherwise noncontributory. Social history: No reported history of drug or alcohol abuse. Family history: As per history of present illness and as reviewed below otherwise noncontributory. Physical exam: HEENT: Atraumatic, normocephalic, pupils reactive, negative for conjunctival pallor or scleral icterus, mucous membranes moist, throat clear, neck supple, nontender, trachea midline. Lungs: Clear to auscultation, breath sounds equal bilaterally, chest nontender. Heart: S1S2, regular, negative for clicks, rubs, or JVD. Abdomen: Soft, nondistended, nontender. Negative for masses or hepatosplenomegaly. Negative for costovertebral tenderness. Pelvis: Stable nontender. Genitourinary: Deferred. Rectal: Deferred. Extremities: Atraumatic, negative for cords or calf pain. Neurovascular unremarkable. Neuro: Awake, alert, oriented. Cranial nerves II through XII unremarkable. Cerebellum unremarkable. Motor and sensory unremarkable throughout. Exam nonfocal. Diagnostics: [Venous Doppler CBC BMP INR uric acid ] Therapeutics: [Continue current recommendations Follow-up with surgeon as scheduled] Impression: [Rule out DVT complete] Definitive disposition and diagnosis as appropriate pending reevaluation and review of above. left toe Pain Score (Numeric/FACES): 7 - Related Data Allergies Allergy/AdvReac Type Severity Reaction Status Date / Time Sulfa (Sulfonamide Allergy Rash Verified 10/29/17 12:49 Antibiotics) Home Meds: Home Meds Insulin Glarg,Human.Rec.Analog [LantUS] 22 unit SQ BID 06/03/17 [History] Losartan [Cozaar] 50 mg PO DAILY 10/20/17 [History] Pioglitazone [Actos] 30 mg PO DAILY 10/20/17 [History] Amitriptyline [Elavil] 50 mg PO DAILY 10/29/17 [History] Amoxicillin [Amoxil] 875 mg PO DAILY 10/29/17 [History] Aspirin 325 mg PO DAILY 10/29/17 [History] Clopidogrel [Plavix] 75 mg PO DAILY 10/29/17 [History] Gabapentin [Gralise] 600 mg PO DAILY 10/29/17 [History] oxyCODONE HCl [oxyCODONE] 5 mg PO DAILY 10/29/17 [History] Past Medical History - Past Health History Medical/Surgical History: Denies Medical/Surgical History HEENT History: Reports: None Cardiovascular History: Reports: High Cholesterol, Hypertension Respiratory History: Reports: None Gastrointestinal History: Reports: None Genitourinary History: Reports: None [employer] ENG[employer]ER History: Reports: Musculoskeletal History: Reports: None Neurological History: Reports: Neuropathy, Peripheral Psychiatric History: Reports: None Endocrine/Metabolic History: Reports: Diabetes, Type II Hematologic History: Reports: None Immunologic History: Reports: None Oncologic (Cancer) History: Reports: None Dermatologic History: Reports: None - Infectious Disease History Infectious Disease History: Reports: None - Past Surgical History Head Surgeries/Procedures: Reports: None HEENT Surgical History: Reports: None Cardiovascular Surgical History: Reports: None Respiratory Surgical History: Reports: None GI Surgical History: Reports: Cholecystectomy Female Surgical History: Reports: Hysterectomy, Tubal Ligation Endocrine Surgical History: Reports: None Neurological Surgical History: Reports: None Musculoskeletal Surgical History: Reports: None Oncologic Surgical History: Reports: None Dermatological Surgical History: Reports: None Social & Family History - Family History Family Medical History: Noncontributory - Tobacco Use Smoking Status *Q: Never Smoker Years of Tobacco use: 27 Packs/Tins Daily: 0.5 - Caffeine Use Caffeine Use: Reports: Soda - Recreational Drug Use Recreational Drug Use: No Review of Systems - Review of Systems Review Of Systems: ROS reveals no pertinent complaints other than HPI. ED EXAM, GENERAL - Physical Exam Exam: See Below Course - Vital Signs Last Recorded V/S: Last Vital Signs Temp 97.4 F 10/29/17 12:46 Pulse 107 H 10/29/17 12:46 Resp 18 10/29/17 12:46 BP 132/62 10/29/17 12:46 Pulse Ox 99 10/29/17 12:46 - Orders/Labs/Meds Labs: Laboratory Tests 10/29/17 10/29/17 10/29/17 Range/Units 13:47 13:47 13:47 WBC 12.12 H (4.0-11.0) K/uL RBC 3.02 L (4.30-5.90) M/uL Hgb 9.3 L (12.0-16.0) g/dL Hct 28.4 L (36.0-46.0) % MCV 94.0 (80.0-98.0) fL MCH 30.8 (27.0-32.0) pg MCHC 32.7 (31.0-37.0) g/dL RDW Std Deviation 44.2 (28.0-62.0) fl RDW Coeff of Darlin 13 (11.0-15.0) % Plt Count 614 H (150-400) K/uL MPV 9.30 (7.40-12.00) fL Add Manual Diff YES Neutrophils % (Manual) 67 (48.0-80.0) % Band Neutrophils % 4 % Lymphocytes % (Manual) 15 L (16.0-40.0) % Monocytes % (Manual) 11 (0.0-15.0) % Eosinophils % (Manual) 3 (0.0-7.0) % Nucleated RBC % 0.9 /100WBC Absolute Seg Neuts 8.1 H (1.4-5.7) Band Neutrophils # 0.5 Lymphocytes # (Manual) 1.8 (0.6-2.4) Monocytes # (Manual) 1.3 H (0.0-0.8) Eosinophils # (Manual) 0.4 (0.0-0.7) Nucleated RBCs # 0 K/uL INR 0.92 (0.86-1.11) Sodium 141 (136-146) mmol/L Potassium 3.4 L (3.5-5.1) mmol/L Chloride 107 (98-110) mmol/L Carbon Dioxide 22 (21-31) mmol/L BUN 5 L (6.0-23.0) mg/dL Creatinine 0.7 (0.6-1.5) mg/dL Est Cr Clr Drug Dosing 96.62 mL/min Estimated GFR (MDRD) > 60.0 ml/min Glucose 247 H (60-110) mg/dL Uric Acid 2.4 (2.1-6.2) mg/dL Calcium 8.4 L (8.8-10.8) mg/dL Departure - Departure Time of Disposition: 15:01 Disposition: Home, Self-Care 01 Condition: Good Clinical Impression: Leg swelling - Discharge Information Referrals: Ivette Martines NP [Primary Care Provider] - Forms: ED Department Discharge Additional Instructions: Elevate lower extremity arrest as discussed Follow your surgeon's recommendations Follow-up with surgeon as scheduled Follow-up with primary care as needed The following information is given to patients seen in the emergency department who are being discharged to home. This information is to outline your options for follow-up care. We provide all patients seen in our emergency department with a follow-up referral. The need for follow-up, as well as the timing and circumstances, are variable depending upon the specifics of your emergency department visit. If you don't have a primary care physician on staff, we will provide you with a referral. We always advise you to contact your personal physician following an emergency department visit to inform them of the circumstance of the visit and for follow-up with them and/or the need for any referrals to a consulting specialist. The emergency department will also refer you to a specialist when appropriate. This referral assures that you have the opportunity for follow-up care with a specialist. All of these measure are taken in an effort to provide you with optimal care, which includes your follow-up. Under all circumstances we always encourage you to contact your private physician who remains a resource for coordinating your care. When calling for follow-up care, please make the office aware that this follow-up is from your recent emergency room visit. If for any reason you are refused follow-up, please contact the [facility] emergency department at and asked to speak to the emergency department charge nurse.
[2017-10-29 14:21] LABS: CHLORIDE,CL 107 mmol/L (98-110); SODIUM,NA 141 mmol/L (136-146)
--- NOTE | 2017-10-29 14:31 | US ---
ULTRASOUND EXAMINATION OF the right lower extremity WITH DOPPLER HISTORY: Leg pain FINDINGS: Examination of the right leg was performed from the groin to the calf region. All visualized segment s including common femoral, proximal greater saphenous, superficial femoral, popliteal and calf veins appear patent with good compressibility and augmentation. There is no evidence of a deep vein throm bosis. IMPRESSION: No evidence of a DVT.
== END 2017-10-29 15:39 | disposition home or self-care (01) ==
LOC: MW.ED 12:37
DX: R22.42 Localized swelling, mass and lump, left lower limb (principal); E78.00 Pure hypercholesterolemia, unspecified; I10 Essential (primary) hypertension; E11.9 Type 2 diabetes mellitus without complications; Z88.2 Allergy status to sulfonamides; Z79.4 Long term (current) use of insulin; Z79.82 Long term (current) use of aspirin; Z79.899 Other long term (current) drug therapy
CPT/HCPCS: 36415; 80048; 84550; 85025; 85610; 93971-26-RT; 93971-RT; 99284; 99284-25